=== PATIENT | female | born 1980 | race Hispanic/Latino ===

== ENCOUNTER → 2020-03-18 | Day surgery (SDC) | payer OTHER ==
[~2020-03-18] MED LIST: ACETAMINOPHEN/CODEINE 300MG - 30MG TAB ONE; BENTYL10 MG PO; BUPIVACAINE 0.25%/EPI 30ML SDV INJ ONE; CARAFATE1 GM/10 ML PO; CEFAZOLIN SOD 1 GM/NS 50ML 100 ML IV ONE; COLESTIPOL HCL1 GM PO; DEXAMETHASONE SOD PHOS INJ 4 MG/ML VIAL ONE; ETOMIDATE 2 MG/ML 10 ML INJ IV ONE; IMURAN50 MG PO; KETOROLAC TROMETHAMINE 30 MG/ML VIAL ONE; LIDOCAINE HCL 2% LOCAL INJ 5 ML SDV VIAL INJ ONE; MEPERIDINE HCL INJ 25 MG/ML VIAL ONE; NEXIUM40 MG PO; ONDANSETRON HCL INJ 2MG/ML 2ML 2 MG/ML VIAL ONE; PROBIOTIC & AC1 EACH PO; PROPOFOL IV EMULSION 10 MG/ML 20 ML VIAL ONE; PROTONIX20 MG PO; SEVOFLURANE INHAL SOLN 250 ML PEN BTL ONE
[2020-03-18 10:20] VITALS: BP 128/68
--- NOTE | 2020-03-19 10:12 | Operative Report ---
DATE OF PROCEDURE: 03/18/2020 SURGEON: Brad Saha MD PREOPERATIVE DIAGNOSES: Left knee medial meniscus tear and left knee degenerative joint disease of the knee. POSTOPERATIVE DIAGNOSES: Left knee medial meniscus tear, left knee degenerative joint disease of the knee, and left knee symptomatic medial shelf plica. OPERATIONS AND PROCEDURES PERFORMED: The patient underwent left knee examination under anesthesia, left knee arthroscopy, left knee partial medial meniscectomy, left knee chondroplasty of the patella, medial femoral condyle, medial tibial plateau, and lateral tibial plateau. She also underwent resection of a medial shelf plica. APPAREL RENTAL CLERK: There was no child nutrition assistant. ANESTHESIA: General endotracheal intubation anesthesia. IV FLUIDS: Per the anesthesia record. BRIEF DESCRIPTION OF THE PATIENT'S OPERATIVE PROCEDURE: Ms. Mckeon was taken to the operating room and placed in supine position on the operating table. Following induction of general anesthesia as well as endotracheal intubation, the patient's left lower extremity was examined under anesthesia. She was found to have muscular changes throughout the lower extremity consistent with her neurologic dysfunction. Her knee had no gross abnormalities. There was a mild effusion. The patient's lower extremity was prepped and draped in standard surgical fashion. A two-port technique was used to provide this patient's arthroscopic evaluation of the knee joint. Examination of the suprapatellar pouch, medial and lateral gutters found no evidence of loose bodies. There was, however, evidence of chondromalacia of the patella. The scope was advanced to medial compartment. Examination of the medial compartment demonstrated an undersurface tear of the midportion of the body of the medial meniscus. There was mild chondromalacia of the articulating surfaces. A combination of biting forceps and motorized shaver were used to resect the torn portion of the meniscus. Chondroplasties of the medial femoral condyle and medial tibial plateau are performed at this time. Scope was then advanced to the intercondylar notch, the anterior cruciate ligament was identified and found to be intact. Scope was then advanced to lateral compartment and there was mild chondromalacia of the lateral tibial plateau. A chondroplasty of the surface was performed at this time. The scope was then placed in suprapatellar pouch and chondroplasties of the patella was performed. There was also a large and inflamed medial shelf plica interdigitating between the patella and trochlea. This was resected at this time. The knee was then deflated with sterile normal saline. Each of the portal sites were closed using 4-0 nylon sutures. The portal sites as well as knee itself were injected with 0.5% Marcaine with epinephrine. Sterile dressings were applied. The patient was then awakened and taken to postanesthesia care unit in stable condition. MD BART Banda/KOBI /[id number]
== END | disposition home or self-care (01) ==
LOC: OR 06:03
PROVIDERS: ATTEND Specialist
DX: S83.222A Peripheral tear of medial meniscus, current injury, left knee, initial encounter (principal); M17.12 Unilateral primary osteoarthritis, left knee; M22.42 Chondromalacia patellae, left knee; M67.52 Plica syndrome, left knee; M21.372 Foot drop, left foot; M21.371 Foot drop, right foot; G57.83 Other specified mononeuropathies of bilateral lower limbs; G62.9 Polyneuropathy, unspecified; K21.9 Gastro-esophageal reflux disease without esophagitis; K50.90 Crohn's disease, unspecified, without complications; X58.XXXA Exposure to other specified factors, initial encounter; Z88.2 Allergy status to sulfonamides; Z91.041 Radiographic dye allergy status
CPT/HCPCS: 29881; J0690; J1100; J1885; J2001; J2175; J2405; J2704; U0002

== ENCOUNTER 2021-05-09 16:30 | Emergency (ER) | payer OTHER ==
[~2021-05-09] VITALS: Ht 160 cm; Wt 63.0 kg
[~2021-05-09 16:30] MED LIST changes: -ACETAMINOPHEN/CODEINE 300MG - 30MG TAB ONE; -BUPIVACAINE 0.25%/EPI 30ML SDV INJ ONE; -CEFAZOLIN SOD 1 GM/NS 50ML 100 ML IV ONE; -DEXAMETHASONE SOD PHOS INJ 4 MG/ML VIAL ONE; -ETOMIDATE 2 MG/ML 10 ML INJ IV ONE; -KETOROLAC TROMETHAMINE 30 MG/ML VIAL ONE; -LIDOCAINE HCL 2% LOCAL INJ 5 ML SDV VIAL INJ ONE; -MEPERIDINE HCL INJ 25 MG/ML VIAL ONE; -ONDANSETRON HCL INJ 2MG/ML 2ML 2 MG/ML VIAL ONE; -PROPOFOL IV EMULSION 10 MG/ML 20 ML VIAL ONE; -SEVOFLURANE INHAL SOLN 250 ML PEN BTL ONE
[2021-05-09] MEDS ORDERED: ONDANSETRON HCL INJ 2MG/ML 2ML 2 MG/ML VIAL IV STA (17:09)
[2021-05-09] MEDS ORDERED: SODIUM CHLORIDE 0.9% 1000ML 1,000 ML IV ONE (17:15)
[2021-05-09 17:48] LABS: BASOPHILS % 0.5 % (0.0-1.0); HEMATOCRIT 39.7 % (34.2-44.1); HEMOGLOBIN 13.4 g/dL (12.0-16.0); LYMPHOCYTES # (AUTO) 0.5 (1.0-3.2); LYMPHOCYTES % 13.5 % (18.0-39.1); MEAN CORPUSCULAR HEMOGLOBIN 30.4 pg (28-32); MEAN CORPUSCULAR HGB CONC 33.8 g/dL (31-35); MONOCYTES # (AUTO) 0.4 (0.2-0.8); MONOCYTES % 9.4 % (4.4-11.3); NEUTROPHILS % 76.3 % (38.7-80.0); PLATELET COUNT 340 x10e3/uL (140-360); RED BLOOD COUNT 4.41 x10e6/uL (3.6-5.1); RED CELL DISTRIBUTION WIDTH 12.3 % (11.7-14.4)
[2021-05-09 17:52] LABS: ALBUMIN 4.2 g/dL (3.5-5.0); ALBUMIN/GLOBULIN RATIO 0.9 (0.8-2.0); ANION GAP 18.4 mmol/L (8-16); CALCIUM 9.2 mg/dL (8.4-10.2); CREATININE, SERUM 0.53 mg/dL (0.57-1.11); POTASSIUM 3.4 mmol/L (3.5-5.1)
[2021-05-09] MEDS ORDERED: CASIRIVIMAB/IMDEVIMAB 10 ML in SODIUM CHLORIDE 0.9% 100 ML IV ONE (18:30)
[2021-05-09] MEDS ORDERED: ACETAMINOPHEN 325 MG TAB PO ONE (19:00)
[2021-05-10 04:41] LABS: AMYLASE 42 U/L (25-125); LIPASE 9 U/L (8-78)
== END 2021-05-09 20:15 | disposition home or self-care (01) ==
LOC: ER 17:06
DX: R50.9 Fever, unspecified (principal); R11.2 Nausea with vomiting, unspecified; U07.1 COVID-19; K58.9 Irritable bowel syndrome, unspecified
CPT/HCPCS: 36415; 80053; 82150; 83690; 85025; 99283; J2405; J7030; J7050; U0002

== ENCOUNTER 2025-06-10 04:02 | Emergency (ER) | payer OTHER ==
[~2025-06-10] VITALS: Ht 160 cm; Wt 52.2 kg
[2025-06-10] MEDS: ONDANSETRON HCL INJ 2MG/ML 2ML 2 MG/ML VIAL IV STA (04:34)
[2025-06-10 04:40] LABS: BASOPHILS % 0.5 % (0.0-1.0); EOSINOPHILS % 0.3 % (0.0-6.0); LYMPHOCYTES % 29.2 % (18.0-39.1); MONOCYTES % 3.3 % (4.4-11.3); NEUTROPHILS % 66.2 % (38.7-80.0); RED CELL DISTRIBUTION WIDTH 12.0 % (11.7-14.4)
[2025-06-10 04:54] LABS: EST GLOMERULAR FILTRATION RATE 119.0 ML/MIN (>=60)
[2025-06-10 06:15] VITALS: PULSE 66; RESP 17; TEMP 98.3
[2025-06-10 06:24] LABS: LEUKOCYTE ESTERASE ,URINE NEGATIVE (NEGATIVE); PROTEIN,URINE DIPSTICK 1+ (NEGATIVE); URINE UROBILINOGEN 0.2 mg/dL (0.2 - 1)
[2025-06-10 06:36] LABS: EPITHELIAL CELLS,URINE MODERATE /LPF; WBC,URINE (MAN) 21-50 /HPF (0-5)
[2025-06-10] MEDS ORDERED: CEFDINIR300 MG PO (07:01)
[2025-06-10 07:14] VITALS: BP 120/70; PULSE 66; RESP 16; TEMP 98.4; O2SAT 99
== END 2025-06-10 07:15 | disposition home or self-care (01) ==
LOC: ER 04:26
DX: R10.13 Epigastric pain (principal); R11.2 Nausea with vomiting, unspecified; R14.2 Eructation; K21.9 Gastro-esophageal reflux disease without esophagitis; M54.50 Low back pain, unspecified; Z87.19 Personal history of other diseases of the digestive system
CPT/HCPCS: 36415; 74176; 80053; 81001; 83690; 84702; 85025; 99283; J2405; J2470